=== PATIENT | female | born 1990 | race African-American/Black ===

== ENCOUNTER 2021-08-24 09:50 | Emergency (ER) | payer OTHER, MEDICAID ==
[~2021-08-24] VITALS: Ht 170.2 cm; Wt 65.0 kg
[2021-08-24] MEDS ORDERED: ACETAMINOPHEN 325MG TABLET PO ONE (11:15)
[2021-08-24] MEDS ORDERED: IBUPROFEN 400MG TABLET PO ONE (11:15)
[2021-08-24] MEDS ORDERED: TOPUD MT (13:09)
[2021-08-24] MEDS ORDERED: TETANUS, DIPHTHERIA, PERTUSSIS VAC/PF 0.5ML (>10YR OLD) IM ONE (13:30)
[2021-08-24 13:44] VITALS: BP 108/64
== END 2021-08-24 13:47 | disposition home or self-care (01) ==
LOC: ER 10:17
DX: R07.89 Other chest pain (principal); M79.644 Pain in right finger(s)
CPT/HCPCS: 71045; 73590; 90471; 90715; 99283